=== PATIENT | male | born 1950 | race Caucasian/White ===

== ENCOUNTER 2017-11-08 14:42 | Observation (INO) | payer OTHER, MEDICARE ==
[2017-11-08] MEDS ORDERED: NS 0.9% 1000 ML* 1,000 ML IV ONE (15:08)
--- NOTE | 2017-11-08 15:13 | ED ---
Syncope/Near Syncope - HPI Summary HPI Summary: This is nga Belcher documenting for attending Perry Hurt M.D. Pt is a 67 y/o M BIBA due to an episode of syncope at 1400 today. He states that he has not had water to drink since this morning and that he went hiking today. Afterwards, while sitting at a table, he received some water, drank it, and then felt dizzy. He claims he realized what was happening and told his to call an ambulance. He denies chest pain, abdominal pain and SOB at the time of the incident but reports nausea at the time. Pt's , who was present in the room, reports that during the incident he slumped forward on the table, turned rosario, was sweating profusely, and unresponsive for "a while" in the restaurant. On triage, it is noted that EMS had his BP in the 70s. BP is still low in the room at around 90. The also notes Pt will frequently deny having any pain and that his skin color appears abnormal. In the room, he reports all Sx that he had during the incident as resolved and states he feels, "100% better". On triage, pain is denied and nothing is noted to aggravate/ alleviate Sx. Pt had NC at 36 and reports he has had 3 stents and 3 ablations. Pt takes blood thinners. - History Of Current Complaint Chief Complaint: EDSyncope Time Seen by Provider: 11/08/17 14:56 Hx Obtained From: Patient Onset/Duration: Sudden Onset, Lasting Hours - onset 3 hours ago., Resolved Context: Witnessed - Activity At Onset: At Rest - sitting at table Associated Head Trauma: No Aggravating Factor(s): Nothing Alleviating Factor(s): Nothing Associated Signs And Symptoms: Dizzy, Other - POSITIVE: nausea, unresponsiveness , and diaphoresis at time of incident, since resolved; skin discoloration still present according to NEGATIVE: chest pain, abdominal pain, SOB, vomiting - Allergies/Home Medications Home Medications: Home Medications Aspirin EC TAB* [Ecotrin EC Low Dose 81 MG*] 81 mg PO DAILY 11/08/17 [History Confirmed 11/08/17] Atorvastatin* [Lipitor*] 80 mg PO DAILY 11/08/17 [History Confirmed 11/08/17] Clopidogrel TAB* [Plavix TAB*] 75 mg PO DAILY 11/08/17 [History Confirmed ] Lisinopril/HCTZ (NF) [Zestoretic (NF)] 1 tab PO DAILY 11/08/17 [ History Confirmed 11/08/17] PMH/Surg Hx/FS Hx/Imm Hx Cardiovascular History: Reports: Hx Coronary Artery Disease, Hx Myocardial Infarction Sensory History: Denies: Hx Legally Blind - Surgical History Surgery Procedure, Year, and Place: reports Pt has had 3 stents and 3 ablations Infectious Disease History: No Infectious Disease History: Denies: Traveled Outside the [place] in Last 30 Days - Family History Known Family History: Negative: Blood Disorder - Social History Alcohol Use: Weekly Substance Use Type: Reports: None Smoking Status (MU): Former Smoker Review of Systems Positive: Other - dehydration Positive: Other - Low blood pressure . Negative: Chest Pain Negative: Shortness Of Breath Positive: Nausea - present during syncopal episode, since resolved. . Negative : Abdominal Pain Positive: Other - skin discoloration, still present according to Neurological: Other - NEGATIVE: light-headedness POSITIVE: dizziness during incident, since resolved. Positive: Syncope - resolved All Other Systems Reviewed And Are Negative: Yes Physical Exam - Summary Physical Exam Summary: GENERAL: Patient is a well developed and nourished male who is lying comfortable in the stretcher. Patient is not in any acute respiratory distress. HEAD AND FACE: Normocephalic EYES: PERRLA, EOMI x 2. EARS: Hearing grossly intact. MOUTH: Oropharynx within normal limits. NECK: Supple, trachea is midline, no adenopathy, no JVD, no carotid bruit. CHEST: Symmetric, no tenderness at palpation LUNGS: Clear to auscultation bilaterally. No wheezing or crackles. CVS: Regular rate and rhythm, S1 and S2 present, no murmurs or gallops appreciated. ABDOMEN: Soft, non-tender. Bowel sounds are normal. No abdominal abnormal pulsations. EXTREMITIES: Full ROM in all major joints, no edema, no cyanosis or clubbing. NEURO: Alert and oriented x 3. No acute neurological deficits. Speech is normal and follows commands. SKIN: Dry and warm Triage Information Reviewed: Yes Vital Signs On Initial Exam: Initial Vitals Temp Pulse Resp BP Pulse Ox 95.1 F 64 18 90/48 99 11/08/17 14:57 11/08/17 14:57 11/08/17 14:57 11/08/17 14:57 11/08/17 14:57 Vital Signs Reviewed: Yes Diagnostics - Vital Signs Vital Signs Temp Pulse Resp BP Pulse Ox 11/08/17 15:02 66 23 95/57 92 11/08/17 14:57 95.1 F 64 18 90/48 99 - Laboratory Result Diagrams: 11/08/17 15:42 11/08/17 15:42 Lab Statement: Any lab studies that have been ordered have been reviewed, and results considered in the medical decision making process. - Radiology CXR Xray Interpretation: No Acute Changes Radiology Interpretation Completed By: Radiologist - No active cardiopulmonary disease. This report was reviewed by ED physician. - EKG 0308 Cardiac Rate: NL - Rate of 70 BPM EKG Rhythm: Sinus Rhythm EKG Interpretation: Intraventricular conduction delay, left axis deviation Re-Evaluation - Re-Evaluation First Eval Re-Evaluation Time: 15:32 Comment: Discussed results and admission of patient. Course/Dx Assessment/Plan: Pt is a 67 y/o M BIBA due to an episode of syncope at 1400 today. He states that he has not had water to drink since this morning and that he went hiking today. Afterwards, while sitting at a table, he received some water, drank it, and then felt dizzy. He claims he realized what was happening and told his to call an ambulance. He denies chest pain, abdominal pain and SOB at the time of the incident but reports nausea at the time. Pt's , who was present in the room, reports that during the incident he slumped forward on the table, turned rosario, was sweating profusely, and unresponsive for "a while" in the restaurant. On triage, it is noted that EMS had his BP in the 70s. BP is still low in the room at around 90. The also notes Pt will frequently deny having any pain and that his skin color appears abnormal. In the room, he reports all Sx that he had during the incident as resolved and states he feels, "100% better". On triage, pain is denied and nothing is noted to aggravate/alleviate Sx. Pt had NC at 36 and reports he has had 3 stents and 3 ablations. Pt takes blood thinners. Physical exam was normal. EKG and CXR were taken. EKG findings above, CXR was normal. Lactic acid is 2.1, WBC 12.4, creatinine 1.64. At 15:30, Dr. Jennings was consulted about admission of Pt [place] [facility]. Jennings accepts Pt for admission. Pt was given a diagnosis of syncope. - Diagnoses Provider Diagnoses: Syncope - Physician Notifications Discussed Care of Patient With: Natacha Jennings Time Discussed With Above Provider: 15:30 Instructed by Provider To: Other - Dr. Jennings was consulted about admitting Pt at 15:30. Dr. Jennings accepts Pt for [facility] admission. Discharge - Sign-Out/Discharge Documenting (check all that apply): Patient Departure - admit - Discharge Plan Condition: Fair Disposition: ADMITTED TO [facility] - Billing Disposition and Condition Condition: FAIR Disposition: Admitted to [facility]
--- NOTE | 2017-11-08 15:32 | RAD ---
HISTORY: Chest pain COMPARISONS: None VIEWS: 1: frontal portable view of the chest at 3:19 PM FINDINGS: LINES AND TUBES: None. CARDIOMEDIASTINAL SILHOUETTE: The cardiomediastinal silhouette is normal for portable technique. PLEURA: The costophrenic angles are sharp. No pleural abnormalities are noted. LUNG PARENCHYMA: The lungs are clear. ABDOMEN: The upper abdomen is clear. There is no subphrenic gas. BONES AND SOFT TISSUES: No bone or soft tissue abnormalities are noted. IMPRESSION: NO ACTIVE CARDIOPULMONARY DISEASE.
[2017-11-08] MEDS ORDERED: Acetaminophen TAB* 325 MG PO PRN (16:20)
[2017-11-08] MEDS ORDERED: Ondansetron INJ* 2 MG/ML VIAL IV PRN (16:20)
[2017-11-08 16:29] LABS: ABS Basophils 0 10^3/ul (0-0.2); ABS Eosinophils 0.1 10^3/ul (0-0.6); ABS Lymphocytes 1.3 10^3/ul (1.0-4.8); ABS Monocytes 0.7 10^3/ul (0-0.8); ABS Neutrophils 10.2 10^3/ul (1.5-7.7); ABS Nucleated RBC 0 10^3/ul; Eosinophil % 0.5 % (0-6); Hematocrit 46 % (42-52); Hemoglobin 15.4 g/dl (14.0-18.0); Lymphocyte % 10.6 % (25-47); Mean Corpuscular HGB Conc 34 g/dl (31-36); Mean Corpuscular Hemoglobin 31 pg (27-31); Mean Corpuscular Volume 92 fL (80-94); Mean Platelet Volume 7.9 um3 (7.4-10.4); Nucleated Red Blood Cells % 0.1; Platelet Count 227 10^3/ul (150-450); Red Blood Count 4.99 10^6/ul (4.00-5.40); Red Cell Distribution Width 14 % (10.5-15); White Blood Count 12.4 10^3/ul (3.5-10.8)
[2017-11-08] MEDS ORDERED: NS 0.9% 1000 ML* 1,000 ML IV SCH (16:30)
[2017-11-08 16:42] LABS: EGFR Non-African American 42.4 (>60)
--- NOTE | 2017-11-08 16:47 | RAD ---
INDICATION: Syncope COMPARISON: None TECHNIQUE: Noncontrast axial source images were acquired from the skull base to the vertex. FINDINGS: Ventricles/sulci: The ventricles and cisterns are normal in size and configuration for age. Brain parenchyma: There is no focal parenchymal finding, evidence of intracranial mass, or intracranial mass effect. Intracranial hemorrhage:None. Extra-axial spaces: There are no abnormal extra axial fluid collections or evidence of extra-axial mass. Calvarium: There is no calvarial fracture or other calvarial abnormality. Scalp: There is no evidence of scalp or extracalvarial soft tissue abnormality. Paranasal sinuses/mastoid: The paranasal sinuses and mastoid air cells are clear. Other: None. IMPRESSION: NEGATIVE EXAMINATION
--- NOTE | 2017-11-08 19:34 | HP ---
CC: Dr. Polk, phone number is [phone] * HISTORY AND PHYSICAL: DATE OF ADMISSION: 11/08/17 PRIMARY CARE PROVIDER: Dr. Polk, his phone number is [phone], fax [phone]. ATTENDING PHYSICIAN WHILE IN THE HOSPITAL: Dr. Natacha Jennings MD* (report dictated by Naveen Winters NP) CHIEF COMPLAINT: Syncope. HISTORY OF PRESENT ILLNESS: Mr. Pruett is a 67-year-old male patient who has a history of CAD, AFib, hypertension, hyperlipidemia and also carries a history of AK. He is coming into the ED today. He says that he got up around 5 :30 this morning. He had a small bite to eat like a bagel with soda. He rode 6 hours in the car with his . He came up here for a wedding. He got out of the car, him and his checked in a hotel. Then, they did not really eat or drink anything. They went right to [facility]. They walked to [place]. He states he got a little short of breath doing this, but he said no more than normal when he exerts himself. He got no chest pain, no heaviness, no pressure. He started sweating. With this, he did get tired. They finally went and got something to eat at lunchtime around probably 2:00 and they sat down at a restaurant. The noted that he was sweating profusely. The next thing he knew he fainted, he went forward, he did not hit his head, but he slumped over and landed on the table. The was concerned. She says that she does not think she could get a pulse. She asked for the ED, they called 911. CPR was never started, but they put a cold washcloth in the back of his neck when they came to. He remembers the cold washcloth coming to the back of his neck. There were no reports of chest pressure, heaviness, discomfort. There was no shortness of breath. He says he has not had any calf pain or leg pain. Denied having any abdominal pain or any recent nausea or vomiting. He took his blood pressure meds today and did not really eat. When he got into the ambulance, his blood pressure was in the 70s. It did respond to fluids. By the time he got here, it was back up into the 90s, into 130s after another liter of fluids in the ED, but there was concern because of the syncope, and we were asked to evaluate for admission. PAST MEDICAL HISTORY: Significant for: 1. AK. 2. CAD. 3. AFib. 4. Hypertension. 5. Hyperlipidemia. PAST SURGICAL HISTORY: The patient has had a cardiac ablation x2 and he has had heart catheterization x2. FAMILY HISTORY: Mother had a history of Parkinson's. Father had a history of cancer. MEDICATIONS: Home medications include: 1. Lisinopril/hydrochlorothiazide 1 tablet daily. 2. Plavix 75 mg daily. 3. Aspirin 81 mg daily. 4. Lipitor 80 mg daily. ALLERGIES TO MEDICATIONS: Include no known drug allergies. SOCIAL HISTORY: The patient does have a remote history of smoking. He rarely drinks alcohol. Surrogate decision maker is his . REVIEW OF SYSTEMS: There is no documented fever. He denies having any ear discharge. No rhinorrhea. No sore throat. No thyroid enlargement. Denied having any again chest pressure. No orthopnea. No nocturnal dyspnea. There was no abdominal pain. There was no nausea, no vomiting. No dysuria, no frequency. There was a loss of consciousness per my HPI. No seizure. Review of 14 systems completed, all others negative. PHYSICAL EXAMINATION GENERAL: At this time, Mr. Pruett is a 67-year-old male patient. He is sitting in the ED stretcher. He does not appear to be in any acute distress. He is well nourished. He is well developed. VITAL SIGNS: Blood pressure again when he came in was 90/48, it is now 130/70 with a pulse of 60, respirations were 18, O2 sat 99%, temperature initially was 95.1, repeat pending. HEENT: Head: Atraumatic, normocephalic. Eyes: EOMs are intact. Sclerae anicteric and not pale. Throat: Oral mucosa appears to be dry. No oropharyngeal erythema. NECK: Supple. LUNGS: Clear to auscultation bilaterally. No wheezes, rales, or rhonchi. HEART: Sounds S1, S2. Regular rate and rhythm. No murmurs, rubs, or gallops. ABDOMEN: Soft, flat, nontender. Bowel sounds were present. EXTREMITIES: Pulses were 2+ throughout. He is able to move all 4 extremities with 5/5 strength. NEUROLOGIC: He is awake. He is alert. He is oriented x3. Cranial nerves II through XII were intact. His speech to me was clear. Fitness Floor Attendant were equal. Finger -to- nose intact bilaterally. [id number] intact bilaterally. He had no gross focal deficits. SKIN: Intact. DIAGNOSTIC STUDIES/LAB DATA: His WBC 12.4, RBC of 4.99, hemoglobin of 15.4, hematocrit of 46, platelet count of 227. His sodium was 142, potassium was 3.5 , chloride of 105, bicarb 24, BUN 20, creatinine of 1.64, I do not have a baseline, glucose 113. Lactate 3.1. Calcium 9.4. Total bili 0.9, AST of 15, ALT 15, alk phos 33. Troponin 0. Albumin of 3.9. Brain CT was obtained and is read as a negative exam. Chest x-ray is obtained today, is read as no active cardiopulmonary disease. There was an EKG of today. I do not have a previous for comparison. It showed a normal sinus rhythm, rate of 70. He did have a flattened T-wave in V5 and V6 along with V3 and aVF, but I do not have a previous for comparison. No ST elevations were noted. Old medical records were reviewed. ASSESSMENT AND PLAN: Mr. Pruett is a 67-year-old male patient coming into the emergency department today with complaints of a syncopal episode. We were asked to evaluate for admission. He will be admitted under observation status for: 1. Syncope. I suspect this is probably secondary to dehydration. He is on a mild diuretic. He did not really eat or drink today and then he exerted himself. His pressures are in the 70s, now responds to the fluids. My plan will be to try to get an echo, cycle his troponins, place him on telemetry. A CT brain was negative. I will also get orthostatic blood pressures, hydrate him , and continue to follow. 2. History of coronary artery disease. Continue his aspirin, statin therapy. He is not on beta-joaquín at this point. We will continue to follow this. 3. Atrial fibrillation. He is in sinus rhythm currently. We will monitor. 4. History of hypertension. I am going to hold his blood pressure meds to reevaluate in the morning and restart. 5. Acute kidney failure. I do not know if this is acute or chronic. I am going to get a FENa and follow his creatinine tomorrow. Hydrate him once his hydration comes down, we will monitor. I held his lisinopril and hydrochlorothiazide. 6. Hyperlipidemia. Continue statin therapy. 7. DVT prophylaxis. He will be placed on heparin subcu. 8. Code status. He is a full code. 9. Fluids, electrolytes, and nutrition. He can have a heart-healthy diet. TIME SPENT: Time spent on admission 60 minutes, greater than half the time was spent [id number] with the patient obtaining my history and physical, other half time was spent going over the plan of care with the patient and implementing plan of care. I did discuss the plan of care with my attending, Dr. Jennings, she is in agreement. NAVEEN WINTERS, KATY [id number]/[facility] #: [id number] JACQUI
[2017-11-08] MEDS: Heparin VIAL(*) 5000 UNITS/ML VIAL (FIVE THOUSAND) SUBCUT SCH (22:37)
[2017-11-09] MEDS: Heparin VIAL(*) 5000 UNITS/ML VIAL (FIVE THOUSAND) SUBCUT SCH (05:38)
[2017-11-09 06:17] LABS: ABS Basophils 0.1 10^3/ul (0-0.2); ABS Eosinophils 0.1 10^3/ul (0-0.6); ABS Monocytes 0.7 10^3/ul (0-0.8); ABS Neutrophils 5.1 10^3/ul (1.5-7.7); ABS Nucleated RBC 0 10^3/ul; Eosinophil % 1.1 % (0-6); Hematocrit 42 % (42-52); Lymphocyte % 25.1 % (25-47); Mean Corpuscular HGB Conc 35 g/dl (31-36); Mean Corpuscular Hemoglobin 32 pg (27-31); Mean Corpuscular Volume 90 fL (80-94); Mean Platelet Volume 7.5 um3 (7.4-10.4); Nucleated Red Blood Cells % 0; Platelet Count 203 10^3/ul (150-450); Red Blood Count 4.72 10^6/ul (4.00-5.40); Red Cell Distribution Width 14 % (10.5-15)
[2017-11-09 06:41] LABS: EGFR Non-African American 73.3 (>60)
[2017-11-09 06:57] LABS: Urine Appearance Clear; Urine Blood 1+ (Negative); Urine Color Yellow; Urine Ketones Negative (Negative); Urine Protein Negative (Negative); Urine Red Blood Cell Trace(0-2/hpf) (Absent); Urine Specific Gravity 1.019 (1.010-1.030); Urine Urobilinogen Negative (Negative); Urine White Blood Cell Trace(0-5/hpf) (Absent)
[2017-11-09] MEDS ORDERED: Lisinopril TAB* 10 MG PO SCH (09:00)
[2017-11-09] MEDS ORDERED: Clopidogrel TAB* 75 MG PO SCH (09:00)
[2017-11-09] MEDS ORDERED: Aspirin EC TAB* 81 MG TAB.EC PO SCH (09:00)
[2017-11-09] MEDS ORDERED: Atorvastatin* 80 MG TAB PO SCH (09:00)
[2017-11-09 11:29] VITALS: BP 135/74
--- NOTE | 2017-11-09 15:56 | DS ---
CC: Dr. Polk, [place] * DISCHARGE SUMMARY: DATE OF ADMISSION: 11/08/17 DATE OF DISCHARGE: 11/09/17 PRIMARY CARE PROVIDER: Dr. Polk with a phone number of [phone] and fax of [phone]. DISCHARGE DIAGNOSES: 1. Syncope due to orthostatic hypotension. 2. Dehydration. 3. Acute kidney injury due to above. SECONDARY DIAGNOSES: 1. History of coronary artery disease. 2. History of atrial fibrillation. 3. Hypertension. 4. Hyperlipidemia. 5. History of status post cardiac ablation x2. MEDICATIONS AT DISCHARGE: 1. Plavix 75 mg daily. 2. Aspirin 81 mg daily. 3. Lipitor 80 mg daily. The patient's lisinopril and hydrochlorothiazide was held until the patient sees his primary care provider within the next week for reevaluation. LABORATORY DATA DURING THE HOSPITAL STAY: Included, on 11/09/17, sodium of 140 , potassium 3.6, chloride 109, carbon dioxide 25, BUN 15, creatinine 1.02. The patient's creatinine at admission was 1.64. The patient's troponins were 0 to 0.01 throughout his hospital stay. On 11/09/17, white blood cell count of 8.0, hemoglobin of 15.0, hematocrit of 42 , and platelets of 203. Telemetry monitoring showed occasional PVCs, otherwise unremarkable. HOSPITALIZATION COURSE: Ivan Pruett is a 67-year-old male who is visiting the [facility] from [place], [place]. He drove to [place] very early in the morning on 11/08/17, ate little and drank a small amount of liquids and later on was hiking and had a syncopal episode. His systolic blood pressures on presentation were in the 70s. The patient had acute kidney injury at admission. It was thought to be the combination of dehydration as well as daily use of diuretics. The patient had been on hydrochlorothiazide and lisinopril. The patient was placed on overnight observation on telemetry monitored bed. He was rehydrated with intravenous fluids and his hydrochlorothiazide and lisinopril were held. By the time of discharge, his creatinine is back to norm. His systolic pressures are in the 130s without his blood pressure medication. He is going to be discharged home with recommendation to follow up with his primary care provider in 4 to 7 days. PHYSICAL EXAMINATION: At the time of discharge, blood pressure 120/83, heart rate of 69 and regular, respiratory rate 16, oxygen saturation 97% on room air, temperature of 98.3. General: The patient is a very pleasant 67-year-old male , who is in no acute distress. Alert, awake, and oriented x3. HEENT: Head: Atraumatic, normocephalic. Eyes: Pupils are equal, reactive to light and accommodation. Oropharynx is clear. Mucosa moist. Neck: Supple. No JVD. No bruits bilaterally. Cardiovascular: Regular rate and rhythm. No murmur. Respiratory: Clear to auscultation bilaterally. Abdomen: Soft, nontender. Bowel sounds are present in all 4 quadrants. Extremities: There is no edema. Pulses are +2 bilaterally. No clubbing or cyanosis. On neuro evaluation, speech is clear. Cranial nerves II through XII are grossly intact. Motor strength is 5/5 bilaterally. Please note that this is a short summary of the patient's hospitalization. Please refer to further medical records for details. TIME SPENT: Approximately 35 minutes was spent on the patient's discharge. [id number]/[facility] #: [id number] JACQUI
== END 2017-11-09 11:45 | disposition home or self-care (01) ==
LOC: ED 14:42 → MEDTELE 16:47
PROVIDERS: ADMIT Internal Medicine; ATTEND Internal Medicine
DX: I95.1 Orthostatic hypotension (principal); R55 Syncope and collapse; E86.0 Dehydration; N17.9 Acute kidney failure, unspecified; Z86.79 Personal history of other diseases of the circulatory system; I25.10 Atherosclerotic heart disease of native coronary artery without angina pectoris; I10 Essential (primary) hypertension; E78.5 Hyperlipidemia, unspecified; Z98.890 Other specified postprocedural states; Z79.82 Long term (current) use of aspirin
CPT/HCPCS: 36415; 70450; 71045; 80048; 80053; 81003; 81015; 82570; 83605; 84300; 84484; 85025; 85379; 87040; 87086; 93005; 99284; A9270-GY; G0378; J1644